=== PATIENT | female | born 1945 ===

== ENCOUNTER 2024-04-02 18:48 | Inpatient (IN) | payer MEDICARE, OTHER ==
[~2024-04-02] VITALS: Ht 156 cm; Wt 56.5 kg
[2024-04-02 21:30] VITALS: BP 122/63
[2024-04-02 23:36] LABS: Base Excess Venous -1.1 mmol/L; Bicarbonate Venous 22.1 mmol/L (24.0-30.0)
[2024-04-02] MEDS ORDERED: Ipratropium/Albuterol SulF 2.5-0.5MG/3 ML Amp INH SCH (23:40)
[2024-04-02] MEDS ORDERED: FLU VACC TS2024-25(6MOS UP)/PF 45 MCG/0.5 ML SYRINGE IM ONE (23:40)
[2024-04-02] MEDS ORDERED: Acetaminophen650 M1 PO (23:45)
[2024-04-02] MEDS ORDERED: CefTRIAXone Sodium 2,000 MG in NS 100 ML IV SCH (23:46)
[2024-04-02] MEDS ORDERED: Azithromycin 500 MG in NS 250 ML IV SCH (23:51)
[2024-04-02 23:53] LABS: BASOPHILS ABSOLUTE AUTO 0.08 K/mm3 (0.00-0.23); BASOPHILS PERCENT AUTO 1 % (0-2); EOSINOPHILS PERCENT AUTO 0 % (0-6); Hematocrit 42.8 % (33.0-51.0); Hemoglobin 12.6 g/dL (11.5-16.0); Mean Corpuscular HGB 25.4 pg (26.0-34.0); Mean Corpuscular HGB Conc 29.4 g/dL (31.5-36.5); Mean Corpuscular Volume 86 fL (80-100); Platelet Count 143 K/mm3 (150-400); RDW Coefficient Variation 16.9 % (11.7-14.2); RDW Standard Deviation 53.1 fL (35.1-46.3); Red Blood Cell Count 4.97 M/mm3 (3.80-5.20); White Blood Cell Count 10.19 K/mm3 (4.00-11.30)
[2024-04-03] VITALS (14 sets, daily range): BP systolic 87–136; BP diastolic 46–114
[2024-04-03] MEDS ORDERED: MethylPREDNISolone Sod Succ 125 MG Vial IV SCH
[2024-04-03 00:04] LABS: IMMATURE GRAN ABSOLUTE AUTO 0.11 K/mm3 (0.00-0.10); IMMATURE GRAN PERCENT AUTO 1 % (0-1); LYMPHOCYTES ABSOLUTE AUTO 0.54 K/mm3 (0.84-5.20); LYMPHOCYTES PERCENT AUTO 5 % (21-46); MONOCYTES ABSOLUTE AUTO 0.05 K/mm3 (0.16-1.47); MONOCYTES PERCENT AUTO 1 % (4-13); Mean Platelet Volume 11.3 fL (9.1-12.4); NEUTROPHILS ABSOLUTE AUTO 9.41 K/mm3 (1.96-9.15); NEUTROPHILS PERCENT AUTO 92 % (41-73)
[2024-04-03 00:05] LABS: Albumin, Blood 3.1 g/dL (3.4-5.0); Albumin/Globulin Ratio 0.8 (0.8-1.8); Bilirubin, Total 0.2 mg/dL (0.1-1.0); Bun/Creatinine Ratio 30.3 (12.0-20.0); Calcium, Blood 8.4 mg/dL (8.5-10.1); Creatinine, Blood 0.89 mg/dL (0.40-1.00); Globulin, Blood 4.1 g/dL (2.2-4.0); Magnesium, Blood 2.4 mg/dL (1.6-2.4); Potassium, Blood 5.6 mmol/L (3.5-5.5); Total Protein, Blood 7.2 g/dL (6.4-8.2)
[2024-04-03] MEDS ORDERED: NS 250 ML IV PRN (00:05)
[2024-04-03] MEDS ORDERED: ALBU90OI INH (00:06)
[2024-04-03] MEDS ORDERED: Acetaminophen 325 MG TABLET PO PRN (00:35)
--- NOTE | 2024-04-03 01:39 | NUR ---
ASSUMPTION OF CARE @ 2129 REPORT REVIVED FROM ARLENE DARBY, DOMINIC @ APPROX 1929. PT ARRIVED TO ROOM @ APPORX 2129, PT SLID OVER BY MEDICAL STAFF AND EMS TO PCU BED.
[2024-04-03 03:13] LABS: Base Excess Venous -0.7 mmol/L; PCO2 Venous 59.8 mmHg (38-42); pH Blood Venous 7.25 (7.34-7.37)
[2024-04-03] MEDS ORDERED: Albuterol HFA200 ACT/6.7 GM INH INH PRN (05:30)
[2024-04-03 05:36] LABS: BASOPHILS ABSOLUTE AUTO 0.05 K/mm3 (0.00-0.23); BASOPHILS PERCENT AUTO 1 % (0-2); EOSINOPHILS PERCENT AUTO 0 % (0-6); Hematocrit 41.7 % (33.0-51.0); Hemoglobin 12.1 g/dL (11.5-16.0); IMMATURE GRAN ABSOLUTE AUTO 0.08 K/mm3 (0.00-0.10); IMMATURE GRAN PERCENT AUTO 1 % (0-1); LYMPHOCYTES ABSOLUTE AUTO 0.69 K/mm3 (0.84-5.20); LYMPHOCYTES PERCENT AUTO 9 % (21-46); MONOCYTES ABSOLUTE AUTO 0.08 K/mm3 (0.16-1.47); MONOCYTES PERCENT AUTO 1 % (4-13); Mean Corpuscular HGB 25.1 pg (26.0-34.0); Mean Corpuscular Volume 87 fL (80-100); NEUTROPHILS ABSOLUTE AUTO 7.02 K/mm3 (1.96-9.15); NEUTROPHILS PERCENT AUTO 89 % (41-73); NRBC ABSOLUTE 0.06 K/mm3 (0.00-0.02); NRBC Auto 0.8 /100 WBC (0.0-0.2); Platelet Count 136 K/mm3 (150-400); RDW Coefficient Variation 16.8 % (11.7-14.2); RDW Standard Deviation 53.2 fL (35.1-46.3); Red Blood Cell Count 4.82 M/mm3 (3.80-5.20); White Blood Cell Count 7.92 K/mm3 (4.00-11.30)
[2024-04-03 05:38] LABS: Mean Platelet Volume 11.7 fL (9.1-12.4)
[2024-04-03 05:57] LABS: Albumin, Blood 2.7 g/dL (3.4-5.0); Albumin/Globulin Ratio 0.7 (0.8-1.8); Bilirubin, Total 0.2 mg/dL (0.1-1.0); Bun/Creatinine Ratio 36.5 (12.0-20.0); Creatinine, Blood 0.88 mg/dL (0.40-1.00); Magnesium, Blood 2.5 mg/dL (1.6-2.4); Potassium, Blood 5.4 mmol/L (3.5-5.5); Total Protein, Blood 6.7 g/dL (6.4-8.2)
--- NOTE | 2024-04-03 06:09 | NUR ---
SHIFT SUMMARY LETHARGIC/OPENS EYES TO VERBAL AND PHYSICAL STIMULI/ WAS ABLE TO ANSWER ALL ORIENTATION QUESTION BUT STATING SHE IS IN [place] AND DOES NOT KNOW WHY SHE IS IN THE HOSPITAL/ HAS NOT RESPONED TO QUESTIONS SINCE ARRIVAL, WAS ABLE OBEYS COMMANDS UPON ARRIVAL @ 2130/ HAS NOT FOLLOWED COMMANDS SINCE, MOVING ALL EXTREMITIES EQUALLY, EQUAL HAND SQUEEZES AND FOOT FLEXION/EXTENSION. CONTINUOUS SPO2, SPO2,GREATER THAN 90% THE MAJORITY OF THE SHIFT DID DESATURATED TI HIGH 80% WHEN BEING TRANSITIONED FROM 6L O2 VIA OXYIMAX TO BIPAP 16/6 FIO2 35%. CONTINUOUS TELE MONITORING, BP STABLE WITH MAP GREATER THAN 65, CAP REFILL LESS THAN 3S, STRONG PULSES T/O, SINUS 90-100 S. BOWEL TONES PRESENT IN ALL 4Q, ABD SOFT AND NON-TENDER. PT HAS PUREWICK IN PLACE CONNECTED TO LOW CONTINUOUS SUCTION, TEMP RAWLS REMOVED PER PROTOCOL, URINE YELLOW IN COLOR, PT NOT VOIDED SINCE REMOVAL/BLADDER SCANNED WITH 142 MLS. PT HAS SOME REDNESS TO BL HEELS/ PINK FOAM BOOTIES PLACED, REDNESS NOTED TO RIGHT BUTTOX. BED LOWEST POSITION, CALL LIGHT IN REACH, AWAITING TO GIVE REPORT TO ONCOMING RN.
[2024-04-03] MEDS ORDERED: Insulin Human Lispro 100 Units/ML 3ML Syringe SC SCH (07:30)
[2024-04-03] MEDS ORDERED: Furosemide 10 MG/ML 4ML Vial IV SCH (09:00)
[2024-04-03] MEDS ORDERED: Azithromycin 250 MG Tab PO SCH (09:00)
[2024-04-03] MEDS ORDERED: Enoxaparin 40 MG/0.4 ML SYR SC SCH (09:00)
[2024-04-03] MEDS ORDERED: Lactobacil 2-S.Thermo-Bifido 1 1 Cap PO SCH (09:00)
--- NOTE | 2024-04-03 09:02 | NUR ---
Pt is much more alert, oriented to person, following directions and is easily directable. Expressed surprise that she was not in [place]. She has a good appetite this morning, being assisted by MILLINERY TEACHER. She is tolerating being off the BIPAP since about 30 minutes ago. VBG being drawn at this time. On 4 l/min of O2, spo2 91-92%. No respiratory distress noted. RR 16
[2024-04-03 09:23] LABS: Base Excess Venous -1.7 mmol/L; Bicarbonate Venous 22.4 mmol/L (24.0-30.0); PCO2 Venous 55.8 mmHg (38-42); pH Blood Venous 7.26 (7.34-7.37)
--- NOTE | 2024-04-03 10:00 | NUR ---
VBG results pH is better than before, but still critically low at 7.26. MEntation is confused (baseline dementia, alzheimer's) but she is refusing to wear the bipap mask. Pulling it off agressively and shouted at staff. SPo2 94% on 3 l/min n.c. with no dyspnea, no agitation. I was told in report that she wears 1-3 l/min of O2 at baseline.
--- NOTE | 2024-04-03 10:50 | NUR ---
Pt continues to refuse the bipap and also refused the incentive spirometer at this time.
--- NOTE | 2024-04-03 13:45 | NUR ---
Pt sat up in chair following straight cath. She ate lunch with great appetite. She wanted to get back in bed; voided 120 cc on commode before she got back in bed.
--- NOTE | 2024-04-03 14:13 | NUR ---
Pt is refusing aspects of care. She often does not remember events from an hour ago, and this morning needed to be reoriented to where she was. She is able to talk about where she lives, but has gaps in her understanding of her medical condition. Refused bipap, respiratory treatment, denied that she has diabetes, and has been refusing to cooperate at times with care. Dr. Gaston was notified. Palliative care consultation requested for goals of care planning.
[2024-04-03] MEDS ORDERED: Empagliflozin 10 MG TAB PO SCH (16:00)
--- NOTE | 2024-04-03 16:45 | NUR ---
PT is refusing oral medications. She cannot be convinced that she should take them.
--- NOTE | 2024-04-03 17:57 | NUR ---
Pt is easily agitated, quickly says "no" to many aspects of care. She is not attempting to pull off her tele nor to pull out her IVs. Good appetite. Spo2 88% on 3 l/min while eating her dinner.
--- NOTE | 2024-04-03 18:19 | NUR ---
PT SAID SHE NEEDED TO USE THE TOILET; ATTEMPTED TO VOID, NOTHING IN THE HAT IN TOILET. BLADDER SCAN FOLLOWING ATTEMPT WAS 170 CC.
[2024-04-04 04:03] VITALS: BP 90/56
[2024-04-04 04:12] LABS: Base Excess Venous 2.3 mmol/L; Bicarbonate Venous 26.4 mmol/L (24.0-30.0); PCO2 Venous 38.8 mmHg (38-42); pH Blood Venous 7.44 (7.34-7.37)
[2024-04-04 04:24] LABS: BASOPHILS ABSOLUTE AUTO 0.02 K/mm3 (0.00-0.23); BASOPHILS PERCENT AUTO 0 % (0-2); EOSINOPHILS PERCENT AUTO 0 % (0-6); Hematocrit 37.7 % (33.0-51.0); Hemoglobin 10.9 g/dL (11.5-16.0); IMMATURE GRAN ABSOLUTE AUTO 0.05 K/mm3 (0.00-0.10); IMMATURE GRAN PERCENT AUTO 1 % (0-1); LYMPHOCYTES ABSOLUTE AUTO 0.51 K/mm3 (0.84-5.20); LYMPHOCYTES PERCENT AUTO 5 % (21-46); MONOCYTES ABSOLUTE AUTO 0.33 K/mm3 (0.16-1.47); MONOCYTES PERCENT AUTO 4 % (4-13); Mean Corpuscular HGB 25.3 pg (26.0-34.0); Mean Corpuscular HGB Conc 28.9 g/dL (31.5-36.5); Mean Corpuscular Volume 88 fL (80-100); Mean Platelet Volume 11.6 fL (9.1-12.4); NEUTROPHILS ABSOLUTE AUTO 8.53 K/mm3 (1.96-9.15); NEUTROPHILS PERCENT AUTO 90 % (41-73); NRBC ABSOLUTE 0.07 K/mm3 (0.00-0.02); NRBC Auto 0.7 /100 WBC (0.0-0.2); Platelet Count 148 K/mm3 (150-400); RDW Coefficient Variation 16.6 % (11.7-14.2); RDW Standard Deviation 53.2 fL (35.1-46.3); Red Blood Cell Count 4.31 M/mm3 (3.80-5.20); White Blood Cell Count 9.44 K/mm3 (4.00-11.30)
[2024-04-04 04:52] LABS: Albumin, Blood 2.6 g/dL (3.4-5.0); Albumin/Globulin Ratio 0.7 (0.8-1.8); Bilirubin, Total 0.1 mg/dL (0.1-1.0); Bun/Creatinine Ratio 51.7 (12.0-20.0); Calcium, Blood 8.4 mg/dL (8.5-10.1); Creatinine, Blood 1.16 mg/dL (0.40-1.00); Globulin, Blood 3.7 g/dL (2.2-4.0); Potassium, Blood 5.6 mmol/L (3.5-5.5); Total Protein, Blood 6.3 g/dL (6.4-8.2)
--- NOTE | 2024-04-04 05:54 | NUR ---
PT RESTED COMFORTABLY. DENIES PAIN OR NEEDS. PT UP TO BATHROOM WITH ASSISTANCE. BED ALARM IN PLACE, PT REFUSED BIPAP. WILL CONTINUE TO MONITOR
[2024-04-04 07:55] VITALS: BP 110/64
[2024-04-04] MEDS ORDERED: MethylPREDNISolone Sod Succ 125 MG Vial IV SCH (09:00)
[2024-04-04 10:57] VITALS: BP 106/56
--- NOTE | 2024-04-04 14:57 | NUR ---
SPOKE WITH PT'S NIECE KEM BY PHONE. UNABLE TO REACH PT'S BROTHER ROCKY, LEFT MESSAGE. HOPING TO DISCUSS POLST WITH ROCKY. PT LYING IN BED, NO S/S OF DISTRESS AT THIS TIME.
[2024-04-04 15:01] VITALS: BP 99/56
--- NOTE | 2024-04-04 17:01 | NUR ---
Pt is alert, oriented to person, place somewhat ("this looks like a hospital"), month and year, and some of her history. She is not able to understand her ongoing care and diagnosis. She is fairly cooperative and has not refused medications or other care today. I am not sure why she did not get an Echocardiogram yet. I called the reading room but was unable to connect with the machine shop repair technician this afternoon. Lung sounds had some crackles in the bases, but less diminished than yesterday. Respiratory panel is pending (lab said that the materials to run the test would not be available until tomorrow); MRSA swab was negative. She has been on 3 l/min O2 today, and I was told that she uses 3 l/min at home. Titrated O2 up to 4-5 l/min with activity to keep spo2 >88. She has not been coughing very much today. Took some deep breaths on request and attempted to expectorate, but unable to produce a sputum sample to send to the lab. She has had a good appetite, and is alerting staff by calling out when she needs the walker to get up and use the bathroom or wants to get up to the chair. Voiding and had a normal BM today. Ambulatory with 1 person assist, using walker and gait belt for stability.
[2024-04-04 20:36] VITALS: BP 93/56
--- NOTE | 2024-04-05 04:07 | NUR ---
pt refused labs at this time, pt educated on need for labwork. pt states pt come back in am
--- NOTE | 2024-04-05 04:15 | NUR ---
pt to be transferred to room 324, report called to luis cantor rn, pt transferred via w/c. no s/s of distress upon leaving
[2024-04-05 04:37] VITALS: BP 92/40
[2024-04-05 07:24] VITALS: BP 123/66
[2024-04-05 09:25] LABS: BASOPHILS ABSOLUTE AUTO 0.01 K/mm3 (0.00-0.23); BASOPHILS PERCENT AUTO 0 % (0-2); EOSINOPHILS PERCENT AUTO 0 % (0-6); Hematocrit 39.2 % (33.0-51.0); Hemoglobin 11.8 g/dL (11.5-16.0); IMMATURE GRAN ABSOLUTE AUTO 0.06 K/mm3 (0.00-0.10); IMMATURE GRAN PERCENT AUTO 1 % (0-1); LYMPHOCYTES ABSOLUTE AUTO 0.87 K/mm3 (0.84-5.20); LYMPHOCYTES PERCENT AUTO 7 % (21-46); MONOCYTES ABSOLUTE AUTO 0.88 K/mm3 (0.16-1.47); MONOCYTES PERCENT AUTO 7 % (4-13); Mean Corpuscular HGB 25.3 pg (26.0-34.0); Mean Corpuscular HGB Conc 30.1 g/dL (31.5-36.5); Mean Corpuscular Volume 84 fL (80-100); NEUTROPHILS ABSOLUTE AUTO 10.87 K/mm3 (1.96-9.15); NEUTROPHILS PERCENT AUTO 86 % (41-73); NRBC ABSOLUTE 0.04 K/mm3 (0.00-0.02); NRBC Auto 0.3 /100 WBC (0.0-0.2); Platelet Count 162 K/mm3 (150-400); RDW Coefficient Variation 16.4 % (11.7-14.2); Red Blood Cell Count 4.67 M/mm3 (3.80-5.20); White Blood Cell Count 12.69 K/mm3 (4.00-11.30)
[2024-04-05 09:33] LABS: Mean Platelet Volume 11.3 fL (9.1-12.4)
[2024-04-05 09:43] LABS: Albumin, Blood 3.2 g/dL (3.4-5.0); Albumin/Globulin Ratio 0.8 (0.8-1.8); Bilirubin, Total 0.3 mg/dL (0.1-1.0); Bun/Creatinine Ratio 48.4 (12.0-20.0); Creatinine, Blood 0.91 mg/dL (0.40-1.00); Globulin, Blood 3.8 g/dL (2.2-4.0); Potassium, Blood 4.8 mmol/L (3.5-5.5)
[2024-04-05] MEDS ORDERED: Albuterol 2.5 MG/3 ML VIAL INH PRN (12:35)
[2024-04-05 15:46] LABS: Adenovirus Not Detected (NOT DETECT); Bordetella pertussis Not Detected (NOT DETECT); Chlamydophila pneumoniae Not Detected (NOT DETECT); Coronavirus 229E Not Detected (NOT DETECT); Coronavirus HKU1 Not Detected (NOT DETECT); Coronavirus NL63 Not Detected (NOT DETECT); Coronavirus OC43 Not Detected (NOT DETECT); Human Metapneumovirus Detected (NOT DETECT); Human Rhinovirus/Enterovirus Not Detected (NOT DETECT); Influenza A/2009-H1 Not Detected (NOT DETECT); Influenza A/H1 Not Detected (NOT DETECT); Influenza A/H3 Not Detected (NOT DETECT); Influenza B Not Detected (NOT DETECT); Mycoplasma pneumoniae Not Detected (NOT DETECT); Parainfluenza Virus 1 Not Detected (NOT DETECT); Parainfluenza Virus 2 Not Detected (NOT DETECT); Parainfluenza Virus 3 Not Detected (NOT DETECT); Parainfluenza Virus 4 Not Detected (NOT DETECT); Respiratory Syncytial Virus Not Detected (NOT DETECT); SARS-Cov-2 (COVID-19), BioFire Not Detected (NOT DETECT)
[2024-04-05 16:57] VITALS: BP 120/68
--- NOTE | 2024-04-05 17:18 | NUR ---
SHIFT SUMMARY: PT ORIENTED TO SELF ONLY. MULTIPLE TIMES PT HAS ATTEMPTED OUT OF ROOM TO GO TO HOME LIVING FACILITY. PT HAD HOME 02 EVAL COMPLETED THIS SHIFT. PT NEEDING 5L AT REST AND WITH EXERTION. ECCO COMPLETED THIS SHIFT WELL. PT HOPEFUL TO D/C TODAY BUT NEEDING ECHO RESULTS. PT VERY ANXIOUS THIS SHIFT AND HAD TO BE REDIRECTED MULTIPLE TIMES. PLAN FOR PT TO D/C TOMORROW. CALL LIGHT IN REACH. BED IN LOWEST POSITION WITH BED/CHAIR ALARM ON.
--- NOTE | 2024-04-06 03:29 | NUR ---
SHIFT SUMMARY NO ACUTE EVENTS DURING THIS SHIFT. PT IS A/O TO SELF. ATTEMPTS TO WALK OUT OF THE HOSPITAL ROOM, REDIRECTED. PT INDEPENDENT TO THE RESTROOM. AMBULATES USING FWW. NOT COMPLIENT WITH O2 NASAL CANNULA. 5L NEEDED @HOME PER PREVIOUS SHIFT REPORT. BED AT THE LOWEST POSITION, CALL LIGHT W/I REACH. PT IS ABLE TO MAKE HER NEEDS KNOWN.
[2024-04-06 04:03] VITALS: BP 148/67
[2024-04-06 07:30] VITALS: BP 130/77
[2024-04-06] MEDS ORDERED: PredniSONE 20 MG Tab PO SCH (09:00)
[2024-04-06] MEDS ORDERED: Furosemide 10 MG / ML 2ML Vial IV SCH (09:00)
[2024-04-06] MEDS ORDERED: FURO20 PO (10:24)
[2024-04-06] MEDS ORDERED: PRED20 PO (10:25)
--- NOTE | 2024-04-06 11:09 | NUR ---
DISCHARGE PT AOX1, SEMI COOPERATIVE. PT TO BE TRANSPORTED BACK TO [facility] IN [place]. TRANSFERRED TO WHEELCHAIR WITHOUT EVENTS. ON 6 L O2 ON DISCHARGE (O2 TANK DID NOT HAVE 5L SETTING). BOTH IV'S REMOVED BY THIS RN. CALLED TO GIVE REPORT TO [facility] AT [place], HAD TO LEAVE VOICEMAIL. LEFT CALL BACK NUMBER.
== END 2024-04-06 11:00 | DRG 291 ==
LOC: PCU 18:48 → MEDS 04-05 04:30 → ENPENDDIS 04-06 08:29 → MEDS 04-06 11:00
PROVIDERS: Family Medicine; Student in an Organized Health Care Education/Training Program; ADMIT Internal Medicine
PROC: 5A09357 Assistance with Respiratory Ventilation, Less than 24 Consecutive Hours, Continuous Positive Airway Pressure (ICD-10-PCS; principal; 2024-04-02)
DX: I11.0 Hypertensive heart disease with heart failure (principal); I50.33 Acute on chronic diastolic (congestive) heart failure; J12.3 Human metapneumovirus pneumonia; J96.01 Acute respiratory failure with hypoxia; J96.02 Acute respiratory failure with hypercapnia; J44.1 Chronic obstructive pulmonary disease with (acute) exacerbation; E87.4 Mixed disorder of acid-base balance; R91.1 Solitary pulmonary nodule; E87.5 Hyperkalemia; Z91.041 Radiographic dye allergy status; G30.9 Alzheimer's disease, unspecified; F02.80 Dementia in other diseases classified elsewhere, unspecified severity, without behavioral disturbance, psychotic disturbance, mood disturbance, and anxiety
CPT/HCPCS: 0202U; 36415; 80053; 82803; 82947; 83605; 83735; 83880; 84145; 85025; 87040; 93306; 94640; 94660; 94664; 94760; 94761; 94762; A9270; J0456; J0696; J1650; J1940; J2919; J7050